=== PATIENT | male | born 1995 | race African-American/Black ===

== ENCOUNTER 2016-07-29 08:28 | Emergency (ER) | payer MEDICAID ==
[~2016-07-29] VITALS: Ht 180.3 cm; Wt 104.0 kg
[2016-07-29] MEDS ORDERED: MORPHINE SULFATE 4 MG/ML CPJ (NOT FOR IM USE) IV ONE (08:45)
[2016-07-29] MEDS ORDERED: ONDANSETRON HCL 4MG/2ML VIAL IV ONE (08:45)
[2016-07-29 08:53] VITALS: BP 147/86
== END 2016-07-29 11:20 | disposition home or self-care (01) ==
LOC: ER 08:53
DX: S49.92XA Unspecified injury of left shoulder and upper arm, initial encounter (principal); J45.909 Unspecified asthma, uncomplicated; G40.909 Epilepsy, unspecified, not intractable, without status epilepticus; Z88.0 Allergy status to penicillin; Z88.6 Allergy status to analgesic agent; W18.2XXA Fall in (into) shower or empty bathtub, initial encounter; Y93.E1 Activity, personal bathing and showering; Y99.8 Other external cause status; Y92.89 Other specified places as the place of occurrence of the external cause
CPT/HCPCS: 29105; 73030; 73060; 96374; 96375; 99284; J2270; J2405; Z7610; L3670

== ENCOUNTER 2017-04-23 02:38 | Emergency (ER) | payer MEDICAID ==
[~2017-04-23] VITALS: Ht 190.5 cm; Wt 100.0 kg
[2017-04-23] MEDS ORDERED: VISCOUS LIDOCAINE 2% 15 ML UDC MM PRN (04:30)
[2017-04-23 04:38] LABS: HEMATOCRIT. 44.3 % (42.0-52.0); HEMOGLOBIN. 14.5 g/dL (14.0-18.0); MEAN CORPUSCULAR VOLUME 85.7 fL (80.0-94.0); MEAN PLATELET VOLUME 8.6 fl (7.4-10.4); PLATELET 317 x1000/uL (130-400); RED BLOOD CELL COUNT 5.18 mill/uL (4.7-6.1); RED CELL DISTRIBUTION WIDTH 13.1 % (11.6-14.6)
[2017-04-23 04:47] LABS: CLARITY URINE CLEAR (CLEAR); COLOR URINE YELLOW (YELLOW); KETONES URINE NEGATIVE (NEGATIVE); LEUKOCYTE ESTERASE URINE NEGATIVE (NEGATIVE); NITRITE URINE NEGATIVE (NEGATIVE); OCCULT BLOOD URINE NEGATIVE (NEGATIVE); PH URINE 7.5 (4.5-8.0); PROTEIN URINE NEGATIVE (NEGATIVE)
[2017-04-23 05:04] LABS: CARBON DIOXIDE 30 mEq/L (21-32); CHLORIDE 106 mEq/L (98-107); ETHANOL BLOOD < 10 mg/dL
[2017-04-23 05:28] LABS: *AMPHETAMINES SCREEN URINE NEGATIVE (NEGATIVE); *BARBITURATES SCREEN URINE NEGATIVE (NEGATIVE); *BENZODIAZEPINES SCREEN URINE NEGATIVE (NEGATIVE); *COCAINE SCREEN URINE NEGATIVE (NEGATIVE); CANNABINOID URINE SCREEN NEGATIVE (NEGATIVE); METHADONE URINE SCREEN NEGATIVE (NEGATIVE); OPIATES URINE SCREEN NEGATIVE (NEGATIVE); PHENCYCLIDINE URINE SCREEN NEGATIVE (NEGATIVE)
[2017-04-23 06:34] LABS: PLATELET ESTIMATE NORMAL
[2017-04-23 06:54] VITALS: BP 134/72
== END 2017-04-23 09:47 | disposition home or self-care (01) ==
LOC: ER 02:38
DX: J02.0 Streptococcal pharyngitis (principal); J45.909 Unspecified asthma, uncomplicated; R45.851 Suicidal ideations; K92.0 Hematemesis; R19.7 Diarrhea, unspecified; Z88.0 Allergy status to penicillin; Z88.6 Allergy status to analgesic agent
CPT/HCPCS: 36415; 80053; 80305; 81003; 85025; 86850; 86900; 86901; 99284; G0482; Z7610

== ENCOUNTER 2018-10-13 09:30 | Emergency (ER) | payer MEDICAID ==
[~2018-10-13] VITALS: Ht 172.7 cm; Wt 107.0 kg
[2018-10-13] MEDS ORDERED: SODIUM CHLORIDE 0.9% 1,000 ML IV ONE (09:58)
[2018-10-13] MEDS ORDERED: ONDANSETRON HCL 4MG/2ML INJ IV STA (09:58)
[2018-10-13] MEDS ORDERED: FAMOTIDINE 20MG/2ML VIAL IV STA (09:58)
[2018-10-13 11:34] LABS: CLARITY URINE CLEAR (CLEAR); COLOR URINE YELLOW (YELLOW); KETONES URINE NEGATIVE (NEGATIVE); LEUKOCYTE ESTERASE URINE NEGATIVE (NEGATIVE); NITRITE URINE NEGATIVE (NEGATIVE); OCCULT BLOOD URINE NEGATIVE (NEGATIVE); PROTEIN URINE NEGATIVE (NEGATIVE); SPECIFIC GRAVITY URINE 1.011 (1.005-1.030); UROBILINOGEN URINE 0.2 E.U./dL (0.2-1.0)
[2018-10-13 11:40] LABS: CHLORIDE 105 mEq/L (98-107)
[2018-10-13 11:41] LABS: HEMATOCRIT. 46.7 % (42.0-52.0); HEMOGLOBIN. 15.8 g/dL (14.0-18.0); MEAN CORPUSCULAR HEMOGLOBIN 29.4 pg (28.0-32.0); MEAN CORPUSCULAR VOLUME 86.8 fL (80.0-94.0); MEAN PLATELET VOLUME 9.1 fl (7.4-10.4); PLATELET 223 x1000/uL (130-400); RED BLOOD CELL COUNT 5.38 mill/uL (4.7-6.1); RED CELL DISTRIBUTION WIDTH 13.4 % (11.6-14.6)
[2018-10-13 11:44] LABS: ETHANOL BLOOD < 10 mg/dL
[2018-10-13 11:46] LABS: *BARBITURATES SCREEN URINE NEGATIVE (NEGATIVE); *BENZODIAZEPINES SCREEN URINE NEGATIVE (NEGATIVE)
[2018-10-13 11:47] LABS: *COCAINE SCREEN URINE NEGATIVE (NEGATIVE); CANNABINOID URINE SCREEN PRESUMTIVE POSITIVE (NEGATIVE); METHADONE URINE SCREEN NEGATIVE (NEGATIVE); OPIATES URINE SCREEN NEGATIVE (NEGATIVE); PHENCYCLIDINE URINE SCREEN NEGATIVE (NEGATIVE)
[2018-10-13 11:48] LABS: *AMPHETAMINES SCREEN URINE NEGATIVE (NEGATIVE)
[2018-10-13 12:36] LABS: PLATELET ESTIMATE NORMAL
[2018-10-13 12:50] VITALS: BP 124/74
== END 2018-10-13 12:51 | disposition home or self-care (01) ==
LOC: ER 09:42
DX: R11.2 Nausea with vomiting, unspecified (principal); F12.10 Cannabis abuse, uncomplicated; J45.909 Unspecified asthma, uncomplicated; F17.210 Nicotine dependence, cigarettes, uncomplicated; F10.10 Alcohol abuse, uncomplicated; Y90.0 Blood alcohol level of less than 20 mg/100 ml; Z88.0 Allergy status to penicillin; Z88.6 Allergy status to analgesic agent
CPT/HCPCS: 36415; 80053; 80305; 80320; 81003; 83690; 85025; 85610; 96361; 96374; 96375; 99283; J2405; J3490; J7030; Z7610; G0480

== ENCOUNTER 2018-12-24 18:45 | Emergency (ER) | payer MEDICAID ==
[~2018-12-24] VITALS: Ht 188 cm; Wt 107.0 kg
[2018-12-24] MEDS ORDERED: DEXAMETHASONE 10 MG/ML VIAL IM ONE (22:30)
[2018-12-24] MEDS ORDERED: HYDROCODONE/APAP 7.5/325MG 1 TAB TABLET PO ONE (22:30)
[2018-12-24 23:00] VITALS: BP 139/77
== END 2018-12-24 23:00 | disposition home or self-care (01) ==
LOC: ER 18:45
DX: J02.0 Streptococcal pharyngitis (principal); B95.5 Unspecified streptococcus as the cause of diseases classified elsewhere; J45.909 Unspecified asthma, uncomplicated; F12.10 Cannabis abuse, uncomplicated; Z88.6 Allergy status to analgesic agent; Z88.0 Allergy status to penicillin
CPT/HCPCS: 87070; 87430; 96372; 99283; J1100; Z7610

== ENCOUNTER 2019-02-25 19:37 | Emergency (ER) | payer MEDICAID ==
[~2019-02-25] VITALS: Ht 190.5 cm; Wt 105.0 kg
[2019-02-25 19:54] VITALS: BP 153/69
== END 2019-02-25 22:50 | disposition left against medical advice (07) ==
LOC: ER 19:46
DX: Z53.21 Procedure and treatment not carried out due to patient leaving prior to being seen by health care provider (principal)

== ENCOUNTER 2019-03-05 11:39 | Emergency (ER) | payer MEDICAID ==
[~2019-03-05] VITALS: Ht 188 cm; Wt 109.0 kg
[2019-03-05 11:57] VITALS: BP 168/92
[2019-03-05] MEDS ORDERED: DEXAMETHASONE 10 MG/ML VIAL IM ONE (12:45)
== END 2019-03-05 14:02 | disposition home or self-care (01) ==
LOC: ER 11:39
DX: J02.9 Acute pharyngitis, unspecified (principal); J45.909 Unspecified asthma, uncomplicated; F12.10 Cannabis abuse, uncomplicated; Z88.0 Allergy status to penicillin; Z88.6 Allergy status to analgesic agent
CPT/HCPCS: 87070; 87430; 96372; 99283; J1100

== ENCOUNTER 2019-06-12 22:47 | Emergency (ER) | payer MEDICAID ==
[~2019-06-12] VITALS: Ht 190.5 cm; Wt 107.0 kg
[2019-06-13] MEDS: ACETAMINOPHEN 325MG TABLET PO ONE ×2 (02:43→03:07)
[2019-06-13] MEDS ORDERED: PREDNISONE 20MG TABLET PO SCH (02:45)
[2019-06-13 03:09] VITALS: BP 147/74
== END 2019-06-13 03:10 | disposition home or self-care (01) ==
LOC: ER 22:47
DX: H61.23 Impacted cerumen, bilateral (principal); H66.91 Otitis media, unspecified, right ear; J45.909 Unspecified asthma, uncomplicated; F12.10 Cannabis abuse, uncomplicated; Z88.6 Allergy status to analgesic agent
CPT/HCPCS: 69209; 87070; 87430; 99283; J7512

== ENCOUNTER 2019-07-08 01:36 | Emergency (ER) | payer MEDICAID ==
[~2019-07-08] VITALS: Ht 190.5 cm; Wt 108.9 kg
[2019-07-08] MEDS ORDERED: SODIUM CHLORIDE 0.9% 1,000 ML IV ONE (02:09)
[2019-07-08] MEDS ORDERED: ONDANSETRON HCL 4MG/2ML INJ IV STA (02:09)
[2019-07-08 03:00] LABS: HEMATOCRIT. 48.8 % (42.0-52.0); HEMOGLOBIN. 16.8 g/dL (14.0-18.0); MEAN CORPUSCULAR HEMOGLOBIN 30.1 pg (28.0-32.0); MEAN CORPUSCULAR VOLUME 87.1 fL (80.0-94.0); MEAN PLATELET VOLUME 8.9 fl (7.4-10.4); PLATELET 317 x1000/uL (130-400); RED CELL DISTRIBUTION WIDTH 13.4 % (11.6-14.6)
[2019-07-08] MEDS: ONDANSETRON HCL 4MG/2ML INJ IV SCH ×2 (03:00→04:33)
[2019-07-08 03:03] LABS: CHLORIDE 108 mEq/L (98-107)
[2019-07-08 03:35] LABS: PROTHROMBIN TIME 10.4 sec (9.6-11.0)
[2019-07-08] MEDS ORDERED: ONDANSETRON HCL 4MG/2ML INJ IV ONE ×2 (04:00→08:15)
[2019-07-08] MEDS ORDERED: LOPERAMIDE HCL 2MG CAPSULE PO ONE (04:30)
[2019-07-08 05:11] LABS: PLATELET ESTIMATE NORMAL
[2019-07-08 08:37] VITALS: BP 140/75
== END 2019-07-08 08:38 | disposition home or self-care (01) ==
LOC: ER 01:36
DX: K29.70 Gastritis, unspecified, without bleeding (principal); R11.2 Nausea with vomiting, unspecified; R19.7 Diarrhea, unspecified; J45.909 Unspecified asthma, uncomplicated; F12.10 Cannabis abuse, uncomplicated; F17.210 Nicotine dependence, cigarettes, uncomplicated; Z88.6 Allergy status to analgesic agent; Z88.0 Allergy status to penicillin
CPT/HCPCS: 36415; 71045; 80053; 85025; 85610; 96361; 96374; 96376; 99285; J2405; J7030

== ENCOUNTER 2019-11-27 10:43 | Emergency (ER) | payer MEDICAID ==
[~2019-11-27] VITALS: Ht 177.8 cm; Wt 100.0 kg
[2019-11-27 10:44] VITALS: BP 145/101
== END 2019-11-27 11:40 | disposition left against medical advice (07) ==
LOC: ER 10:56
DX: Z53.21 Procedure and treatment not carried out due to patient leaving prior to being seen by health care provider (principal)

== ENCOUNTER 2020-07-04 12:03 | Emergency (ER) | payer MEDICAID ==
[~2020-07-04] VITALS: Ht 188 cm; Wt 110.0 kg
[2020-07-04 12:10] VITALS: BP 138/76
[2020-07-04] MEDS ORDERED: ACETAMINOPHEN 325MG TABLET PO ONE (12:30)
== END 2020-07-04 13:38 | disposition home or self-care (01) ==
LOC: ER 12:43
DX: S00.81XA Abrasion of other part of head, initial encounter (principal); S09.90XA Unspecified injury of head, initial encounter; H53.8 Other visual disturbances; F12.10 Cannabis abuse, uncomplicated; J45.909 Unspecified asthma, uncomplicated; Z88.0 Allergy status to penicillin; Z88.8 Allergy status to other drugs, medicaments and biological substances; Y00.XXXA Assault by blunt object, initial encounter; Y93.89 Activity, other specified; Y92.89 Other specified places as the place of occurrence of the external cause; Y99.8 Other external cause status
CPT/HCPCS: 70486; 99285

== ENCOUNTER 2020-08-24 08:45 | Emergency (ER) | payer MEDICAID ==
[~2020-08-24] VITALS: Ht 190.5 cm; Wt 100.0 kg
[2020-08-24 08:54] VITALS: BP 142/86
== END 2020-08-24 08:59 | disposition left against medical advice (07) ==
LOC: ER 08:45
DX: Z53.21 Procedure and treatment not carried out due to patient leaving prior to being seen by health care provider (principal)

== ENCOUNTER 2022-02-20 12:29 | Emergency (ER) | payer MEDICAID ==
[~2022-02-20] VITALS: Ht 180.3 cm; Wt 100.0 kg
[2022-02-20] MEDS ORDERED: GLUCAGON,HUMAN RECOMBINANT 1MG/VIAL IV ONE (13:30)
[2022-02-20] MEDS ORDERED: TRAMADOL HCL/ACETAMINOPHEN 37.5/325MG TABLET PO ONE (13:30)
[2022-02-20] MEDS ORDERED: TRAM-529 MT ×2 (14:20→14:40)
[2022-02-20 15:23] VITALS: BP 116/94
== END 2022-02-20 15:24 | disposition home or self-care (01) ==
LOC: ER 13:05
DX: M25.561 Pain in right knee (principal); J45.909 Unspecified asthma, uncomplicated; F12.10 Cannabis abuse, uncomplicated; Z88.0 Allergy status to penicillin
CPT/HCPCS: 99283; J1610

== ENCOUNTER 2022-03-08 20:00 | Emergency (ER) | payer MEDICAID ==
[~2022-03-08] VITALS: Ht 190.5 cm; Wt 102.0 kg
[~2022-03-08 20:00] MED LIST: TRAM-529 MT
[2022-03-08] MEDS ORDERED: KETOROLAC 15MG/ML VIAL IM ONE (22:45)
[2022-03-09] MEDS ORDERED: NAPR500T7 MT (01:12)
[2022-03-09 01:33] VITALS: BP 124/68
== END 2022-03-09 01:43 | disposition home or self-care (01) ==
LOC: ER 20:00
DX: R60.0 Localized edema (principal); M79.18 Myalgia, other site; J45.909 Unspecified asthma, uncomplicated; G40.909 Epilepsy, unspecified, not intractable, without status epilepticus; F12.10 Cannabis abuse, uncomplicated; Z88.6 Allergy status to analgesic agent; Z88.0 Allergy status to penicillin
CPT/HCPCS: 73590; 73610; 73630; 93971; 99284; J1885; Z7610

== ENCOUNTER 2024-10-15 21:41 | Emergency (ER) | payer MEDICAID, OTHER ==
[~2024-10-15] VITALS: Ht 190.5 cm; Wt 114.0 kg
[~2024-10-15 21:41] MED LIST changes: +NAPR-1486 MT; -TRAM-529 MT; +TRAM-534 MT
[2024-10-15 22:11] VITALS: O2SAT 100
[2024-10-15 22:29] VITALS: BP 139/77; PULSE 63; RESP 20; TEMP 37; O2SAT 98
[2024-10-15 23:07] VITALS: TEMP 98.6
[2024-10-15] MEDS: ACETAMINOPHEN 650MG/20.3ML UDC PO ONE (23:07)
== END 2024-10-15 23:41 | disposition left against medical advice (07) ==
LOC: ER 21:41
DX: J02.9 Acute pharyngitis, unspecified (principal); J45.909 Unspecified asthma, uncomplicated; Z79.1 Long term (current) use of non-steroidal anti-inflammatories (NSAID); Z88.0 Allergy status to penicillin; Z88.6 Allergy status to analgesic agent
CPT/HCPCS: 99282

== ENCOUNTER 2024-10-24 23:53 | Emergency (ER) | payer OTHER ==
[~2024-10-24] VITALS: Ht 190.5 cm; Wt 114.0 kg
[2024-10-25 00:26] VITALS: O2SAT 99
[2024-10-25 00:28] VITALS: TEMP 36.5
[2024-10-25] MEDS ORDERED: LIDO5JEL8 TP (01:13)
[2024-10-25] MEDS: VISCOUS LIDOCAINE 2% 15 ML UDC MM SCH (01:28)
[2024-10-25] MEDS: HYDROCODONE/ACETAMINOPHEN 5/325MG TABLET PO ONE (01:29)
[2024-10-25 01:37] VITALS: BP 113/68; PULSE 55; RESP 18; O2SAT 99
== END 2024-10-25 01:40 | disposition home or self-care (01) ==
LOC: ER 10-25 00:08
DX: K02.9 Dental caries, unspecified (principal); F12.10 Cannabis abuse, uncomplicated; J45.909 Unspecified asthma, uncomplicated; Z88.0 Allergy status to penicillin; Z88.6 Allergy status to analgesic agent
CPT/HCPCS: 99283

== ENCOUNTER 2024-11-20 02:42 | Emergency (ER) | payer OTHER ==
[~2024-11-20] VITALS: Ht 188 cm; Wt 109.0 kg
[~2024-11-20 02:42] MED LIST changes: +LIDO5JEL8 TP
[2024-11-20 02:48] VITALS: O2SAT 100
[2024-11-20] MEDS: HYDROCODONE/ACETAMINOPHEN 5/325MG TABLET PO ONE (03:33)
[2024-11-20] MEDS ORDERED: NAPR-1176 MT (03:47)
[2024-11-20 04:15] VITALS: BP 129/80; PULSE 68; RESP 13; TEMP 36.6; O2SAT 100
== END 2024-11-20 04:20 | disposition home or self-care (01) ==
LOC: ER 02:42
DX: K02.9 Dental caries, unspecified (principal); K08.89 Other specified disorders of teeth and supporting structures; J45.909 Unspecified asthma, uncomplicated; K04.7 Periapical abscess without sinus; Z79.1 Long term (current) use of non-steroidal anti-inflammatories (NSAID); Z79.2 Long term (current) use of antibiotics; Z88.0 Allergy status to penicillin; Z88.6 Allergy status to analgesic agent
CPT/HCPCS: 99283

== ENCOUNTER 2024-11-28 09:21 | Emergency (ER) | payer OTHER ==
[~2024-11-28] VITALS: Ht 182.9 cm; Wt 91.0 kg
[~2024-11-28 09:21] MED LIST changes: +NAPR-1176 MT
[2024-11-28 09:34] VITALS: O2SAT 100
[2024-11-28 09:59] LABS: CLARITY URINE CLEAR (CLEAR); COLOR URINE DARK YELLOW (YELLOW); GLUCOSE URINE NEGATIVE (NEGATIVE); KETONES URINE 3+ (NEGATIVE); LEUKOCYTE ESTERASE URINE NEGATIVE (NEGATIVE); NITRITE URINE NEGATIVE (NEGATIVE); OCCULT BLOOD URINE NEGATIVE (NEGATIVE); PH URINE 6.5 (4.5-8.0); PROTEIN URINE 1+ (NEGATIVE); SPECIFIC GRAVITY URINE 1.023 (1.005-1.030); UROBILINOGEN URINE 1.0 E.U./dL (0.2-1.0)
[2024-11-28] MEDS: SODIUM CHLORIDE 0.9% 1,000 ML IV ONE (10:01)
[2024-11-28] MEDS: ONDANSETRON HCL 4MG/2ML INJ IV ONE (10:02)
[2024-11-28 10:14] LABS: BACTERIA URINE FEW; RBC URINE 0-2 /hpf (0-2); SQUAMOUS EPITHELIAL CELL URINE RARE /lpf (RARE/1+); YEAST URINE NONE SEEN
[2024-11-28 10:39] LABS: BASOPHILS % 1.2 % (0.0-2.0); EOSINOPHILS % 1.1 % (0.0-5.0); HEMATOCRIT. 42.2 % (42.0-52.0); HEMOGLOBIN. 14.5 g/dL (14.0-18.0); LYMPHOCYTES % 36.4 % (20.0-50.0); MEAN PLATELET VOLUME 8.0 fl (7.4-10.4); MONOCYTES % 14.7 % (2.0-8.0); NEUTROPHILS % 46.6 % (40.0-76.0); PLATELET 285 x1000/uL (130-400); RED BLOOD CELL COUNT 4.83 mill/uL (4.7-6.1); RED CELL DISTRIBUTION WIDTH 13.5 % (11.6-14.6)
[2024-11-28 11:04] LABS: CREATININE 0.8 mg/dL (0.6-1.3); UREA NITROGEN BLOOD 9 mg/dL (9-23)
[2024-11-28] MEDS ORDERED: ONDA4TAB50 MT (11:38)
[2024-11-28 12:22] VITALS: BP 124/78; PULSE 72; RESP 16; TEMP 37.1; O2SAT 100
== END 2024-11-28 12:23 | disposition home or self-care (01) ==
LOC: ER 09:24
DX: B34.9 Viral infection, unspecified (principal); J45.909 Unspecified asthma, uncomplicated; Z88.0 Allergy status to penicillin; Z88.6 Allergy status to analgesic agent; Z79.899 Other long term (current) drug therapy
CPT/HCPCS: 99283; 96374; 96361; 80048; 81003; 85025; 36415; J2405; J7030

== ENCOUNTER 2024-12-10 07:34 | Emergency (ER) | payer OTHER ==
[~2024-12-10] VITALS: Ht 188 cm; Wt 109.0 kg
[~2024-12-10 07:34] MED LIST changes: +ONDA4TAB50 MT
[2024-12-10 07:48] VITALS: O2SAT 100
[2024-12-10] MEDS: ONDANSETRON HCL 4MG/2ML INJ IV ONE (08:35)
[2024-12-10] MEDS: LACTATED RINGERS 1,000 ML IV SCH (08:35)
[2024-12-10 08:56] LABS: BASOPHILS % 0.9 % (0.0-2.0); EOSINOPHILS % 1.2 % (0.0-5.0); HEMATOCRIT. 41.5 % (42.0-52.0); HEMOGLOBIN. 14.0 g/dL (14.0-18.0); LYMPHOCYTES % 24.7 % (20.0-50.0); MEAN PLATELET VOLUME 8.3 fl (7.4-10.4); MONOCYTES % 13.6 % (2.0-8.0); NEUTROPHILS % 59.6 % (40.0-76.0); PLATELET 294 x1000/uL (130-400); RED BLOOD CELL COUNT 4.76 mill/uL (4.7-6.1); RED CELL DISTRIBUTION WIDTH 13.8 % (11.6-14.6)
[2024-12-10 09:07] LABS: CREATININE 0.8 mg/dL (0.6-1.3); UREA NITROGEN BLOOD 7 mg/dL (9-23)
[2024-12-10 09:09] LABS: ASPARTATE AMINOTRANSFERASE 22 IU/L (<34); BILIRUBIN DIRECT 0.5 mg/dL (<=3.0)
[2024-12-10 09:10] LABS: BILIRUBIN TOTAL 1.2 mg/dL (0.1-1.0); PROTEIN TOTAL 7.1 g/dL (6.0-8.3)
[2024-12-10 09:38] LABS: CLARITY URINE CLEAR (CLEAR); COLOR URINE YELLOW (YELLOW); GLUCOSE URINE NEGATIVE (NEGATIVE); KETONES URINE TRACE (NEGATIVE); LEUKOCYTE ESTERASE URINE NEGATIVE (NEGATIVE); NITRITE URINE NEGATIVE (NEGATIVE); OCCULT BLOOD URINE NEGATIVE (NEGATIVE); PH URINE 8.0 (4.5-8.0); PROTEIN URINE NEGATIVE (NEGATIVE); SPECIFIC GRAVITY URINE 1.009 (1.005-1.030); UROBILINOGEN URINE 1.0 E.U./dL (0.2-1.0)
[2024-12-10] MEDS ORDERED: SACC250C MT (10:28)
[2024-12-10] MEDS ORDERED: ONDA-239 PO (10:28)
[2024-12-10 10:50] VITALS: BP 125/99; PULSE 50; RESP 14; TEMP 36.8; O2SAT 99
== END 2024-12-10 10:51 | disposition home or self-care (01) ==
LOC: ER 07:34
DX: R11.2 Nausea with vomiting, unspecified (principal); R19.7 Diarrhea, unspecified; J45.909 Unspecified asthma, uncomplicated; Z79.899 Other long term (current) drug therapy; Z79.1 Long term (current) use of non-steroidal anti-inflammatories (NSAID); Z88.6 Allergy status to analgesic agent; Z88.0 Allergy status to penicillin
CPT/HCPCS: 80076; 80048; 81003; 83690; 85025; 36415; 93005; 96361; 96374; 99285; J2405; Z7610

== ENCOUNTER 2025-01-21 04:09 | Emergency (ER) | payer OTHER ==
[~2025-01-21] VITALS: Ht 188 cm; Wt 109.0 kg
[~2025-01-21 04:09] MED LIST changes: +ONDA-239 PO; +SACC250C MT
[2025-01-21 04:13] VITALS: TEMP 36.8; O2SAT 99
[2025-01-21 04:30] VITALS: BP 150/86; PULSE 65; RESP 15; O2SAT 97
== END 2025-01-21 04:57 | disposition left against medical advice (07) ==
LOC: ER 04:09
DX: R06.02 Shortness of breath (principal)
CPT/HCPCS: 99281